=== PATIENT | female | born 1980 | race Caucasian/White ===

== ENCOUNTER 2017-11-07 02:15 | Emergency (ER) | payer BC, OTHER ==
[~2017-11-07] VITALS: Ht 160 cm; Wt 86.2 kg
[2017-11-07] MEDS ORDERED: LORAZEPAM 0.5 MG TABLET PO ONE ×3 (02:45→05:30)
--- NOTE | 2017-11-07 02:45 | NUR ---
Patient walked into ER c/o SOB,neck pain,left arm pain x2hrs. Denies CP,SOB.
[2017-11-07] MEDS ORDERED: LORAZEPAM 1 MG TABLET ONE ×3 (03:07→05:42)
[2017-11-07 03:20] LABS: CREATININE 0.7 mg/dL (0.6-1.3); POTASSIUM 3.9 mmol/L (3.5-5.1)
[2017-11-07] MEDS: LORAZEPAM 2 MG/1 ML VIAL IV ONE ×2 (03:25→05:28)
[2017-11-07 03:26] LABS: BILIRUBIN,DIRECT 0.1 mg/dL (0.0-0.2); BILIRUBIN,TOTAL 0.3 mg/dL (0.2-1.0)
[2017-11-07 03:34] LABS: THYROID STIMULATING HORMONE 4.09 mIU/mL (0.358-3.740)
[2017-11-07 03:53] LABS: BASOPHILS # (AUTO) 0.1 K/uL (0.0-8.0); BASOPHILS % (AUTO) 0.8 % (0.0-2.0); EOSINOPHILS # (AUTO) 0.2 K/uL (0.0-0.7); EOSINOPHILS % (AUTO) 2.2 % (0.0-7.0); HEMOGLOBIN 13.4 G/DL (12.0-16.0); LYMPHOCYTES # (AUTO) 2.2 K/UL (0.8-4.8); LYMPHOCYTES % (AUTO) 30.6 % (20.5-51.5); MEAN CORPUSCULAR HEMOGLOBIN 28.1 UUG (27.0-31.0); MEAN CORPUSCULAR HGB CONC 33 g/dL (32.0-37.0); MEAN CORPUSCULAR VOLUME 85.7 FL (81.0-99.0); MONOCYTES # (AUTO) 0.5 K/UL (0.1-1.30); MONOCYTES % (AUTO) 6.3 % (0.0-11.0); NEUTROPHILS # (AUTO) 4.3 K/UL (1.8-8.9); NEUTROPHILS % (AUTO) 60.1 % (38.5-71.5); PLATELET COUNT (AUTO) 284 K/UL (150-450); RED BLOOD CELL COUNT(AUTO) 4.79 MIL/UL (4.2-5.4); WHITE BLOOD COUNT (AUTO) 7.3 K/UL (4.0-11.2)
--- NOTE | 2017-11-07 05:00 | NUR ---
Patient sleeping with no distress noted
[2017-11-07] MEDS ORDERED: LORAZEPAM 2 MG/1 ML VIAL IV ONE (05:30)
[2017-11-07 05:38] VITALS: BP 154/90
--- NOTE | 2017-11-07 05:39 | NUR ---
Patient discharged in stable conditon with staff member from [facility] taking patient back to detox center. Written and verbal after care instructions given. Patient verbalizes understanding of instructions. Walked out of ER with no distress noted
== END 2017-11-07 05:41 | disposition home or self-care (01) ==
LOC: ER 02:17
DX: F10.239 Alcohol dependence with withdrawal, unspecified (principal)
CPT/HCPCS: 36415; 70030-TC; 70450; 71010; 84443; 84703; 85025; 85730; 93005; A4663